=== PATIENT | female | born 1955 | race Caucasian/White ===

== ENCOUNTER 2020-05-17 11:04 | Outpatient (CLI) | payer MEDICARE, SELFPAY ==
--- NOTE | 2020-05-17 11:28 | PC.NURSE ---
Patient states she is feeling 'flushed and hot', gave her ice water and had her stay 15 minutes longer for observation, states she is fine and ready to leave
== END 2020-05-17 11:05 | disposition home or self-care (01) ==
LOC: ANHCOVIDVC 11:04
PROVIDERS: PCP Internal Medicine
DX: Z23 Encounter for immunization (principal)
CPT/HCPCS: 0001A; 91300

== ENCOUNTER 2020-06-07 10:58 | Outpatient (CLI) | payer MEDICARE, SELFPAY | END 2020-06-07 10:59 | disposition home or self-care (01) | LOC: ANHCOVIDVC 10:58 | PROVIDERS: PCP Internal Medicine | DX: Z23 Encounter for immunization (principal) | CPT/HCPCS: 0002A; 91300 ==